=== PATIENT | male | born 1985 | race Caucasian/White ===

== ENCOUNTER 2018-08-21 10:51 | Emergency (ER) | payer OTHER ==
[2018-08-21] MEDS: IBUPROFEN 800 MG TAB PO (11:26)
== END 2018-08-21 12:45 | disposition home or self-care (01) ==
LOC: FTE 10:51
DX: S20.212A Contusion of left front wall of thorax, initial encounter (principal); V49.40XA Driver injured in collision with unspecified motor vehicles in traffic accident, initial encounter
CPT/HCPCS: 71045; 71100; 99283-25